=== PATIENT | female | born 1985 | race Caucasian/White ===

== ENCOUNTER → 2023-05-08 | Outpatient (CLI) | payer OTHER ==
[2023-05-09 07:06] LABS: Mumps IgG Antibody <9.0 AU/mL (Immune >10.9); Varicella Zoster IgG Antibody <135 index (Immune >165)
[2023-05-09 09:07] LABS: Rubeola IgG Antibody 15.9 AU/mL (Immune >16.4)
== END | disposition home or self-care (01) ==
LOC: LAB 12:50
PROVIDERS: ATTEND Nurse Practitioner
DX: Z01.84 Encounter for antibody response examination (principal)
CPT/HCPCS: 36415; 86706; 86735; 86762; 86765; 86787

== ENCOUNTER 2023-09-26 22:10 | Inpatient (IN) | payer MEDICAID, OTHER ==
[~2023-09-26] VITALS: Ht 157.5 cm; Wt 182.0 kg
[2023-09-26 22:56] LABS: Basophils # (auto) 0 10 ^3/uL (0-0.2); Basophils % (auto) 0.5 % (0.0-2.0); Eosinophils # (auto) 0.3 10 ^3/uL (0-0.8); Eosinophils % (auto) 2.4 % (0.0-7.0); Hematocrit 41.5 % (36.0-46.0); Lymphocytes # (auto) 3.9 10 ^3/uL (0.4-5.4); Lymphocytes % (auto) 36.2 % (10.0-50.0); Mean Corpuscular Hemoglobin 29.5 pg (28.0-32.0); Mean Corpuscular Hgb Conc. 33.8 g/dL (32.0-36.0); Mean Corpuscular Volume 87.1 fL (80.0-100.0); Monocytes # (auto) 0.7 10 ^3/uL (0-1.3); Monocytes % (auto) 6.7 % (0.0-12.0); Neutrophils # (auto) 5.9 10 ^3/uL (1.6-8.6); Neutrophils % (auto) 54.2 % (37.0-80.0); Red Blood Cells 4.76 10^6/uL (4.0-5.20); Red Cell Distribution Width 13.7 % (11.8-14.3); White Blood Cell 10.8 10^3/uL (4.4-10.8)
[2023-09-26 23:05] LABS: Alanine Aminotransferase 45 U/L (7-40); Albumin 3.9 g/dL (3.2-4.8); Alkaline Phosphatase 73 U/L (46-116); Anion Gap 7 (5-15); Aspartate Aminotransferase 26 U/L (13-40); BUN/Creatinine Ratio 16.9 (10.0-20.0); Bilirubin, Total 0.4 mg/dL (0.2-1.0); Blood Urea Nitrogen 12 mg/dL (9-23); Calcium 9.4 mg/dL (8.7-10.4); Carbon Dioxide 24 mmol/L (20-30); Chloride 105 mmol/L (98-107); Glucose 218 mg/dL (74-106); Magnesium 1.5 mg/dL (1.6-2.6); Partial Thromboplastin Time 26.8 SEC (24.5-34.5); Prothrombin Time 10.6 sec (9.3-11.8); Sodium 136 mmol/L (136-145); Total Protein 7.2 g/dL (5.7-8.2)
[2023-09-27] MEDS ORDERED: DOCUSATE SOD 100 MG CAP PO PRN (01:00)
[2023-09-27] MEDS ORDERED: HYDROcodone-ACET 5/325MG TAB PO PRN (01:00)
[2023-09-27] MEDS ORDERED: DEXTROSE (50%) 50ML SYRG IV PRN (01:00)
[2023-09-27] MEDS ORDERED: ONDANSETRON HCL 4 MG/2 ML VIAL IV PRN (01:00)
[2023-09-27] MEDS: ASPirin 325 MG TAB PO ONE (01:14)
[2023-09-27] MEDS: NITROGLYCERIN 2% OINT 1GM PKG TD ONE (01:14)
[2023-09-27] MEDS ORDERED: MORPHINE SULFATE INJ 2 MG/ml SYRG IV PRN (01:45)
[2023-09-27] MEDS ORDERED: NITROGLYCERIN 0.4 MG SL TAB SL PRN (01:45)
[2023-09-27] MEDS: SODIUM CHLORIDE 0.9% 1,000 ML IV SCH (03:39)
[2023-09-27] MEDS: MAGNESIUM SULFATE 1GM/100ML 100 ML IV ONE (03:57)
[2023-09-27 04:00] VITALS: PULSE 70; RESP 22; O2SAT 95
[2023-09-27 06:02] LABS: Basophils # (auto) 0 10 ^3/uL (0-0.2); Basophils % (auto) 0.4 % (0.0-2.0); Eosinophils # (auto) 0.3 10 ^3/uL (0-0.8); Eosinophils % (auto) 2.8 % (0.0-7.0); Hematocrit 39.5 % (36.0-46.0); Hemoglobin 13.3 g/dL (12.2-16.2); Lymphocytes # (auto) 2.6 10 ^3/uL (0.4-5.4); Mean Corpuscular Hemoglobin 29.3 pg (28.0-32.0); Mean Corpuscular Hgb Conc. 33.5 g/dL (32.0-36.0); Mean Corpuscular Volume 87.4 fL (80.0-100.0); Monocytes # (auto) 0.6 10 ^3/uL (0-1.3); Monocytes % (auto) 6.6 % (0.0-12.0); Neutrophils # (auto) 5.5 10 ^3/uL (1.6-8.6); Neutrophils % (auto) 61.2 % (37.0-80.0); Red Blood Cells 4.53 10^6/uL (4.0-5.20); Red Cell Distribution Width 13.5 % (11.8-14.3); White Blood Cell 9.1 10^3/uL (4.4-10.8)
[2023-09-27 06:27] LABS: Alanine Aminotransferase 44 U/L (7-40); Albumin 3.9 g/dL (3.2-4.8); Alkaline Phosphatase 70 U/L (46-116); Anion Gap 3 (5-15); Aspartate Aminotransferase 24 U/L (13-40); Bilirubin, Total 0.4 mg/dL (0.2-1.0); Blood Urea Nitrogen 18 mg/dL (9-23); Calcium 9.2 mg/dL (8.5-10.1); Carbon Dioxide 29 mmol/L (20-30); Chloride 105 mmol/L (98-107); Glucose 216 mg/dL (74-106); Potassium 3.8 mmol/L (3.5-5.1); Sodium 137 mmol/L (136-145); Total Protein 6.8 g/dL (5.7-8.2)
[2023-09-27] MEDS: ACCU-CHEK COMFORT CURVE STRIP VI SCH (07:01)
[2023-09-27] MEDS: InsuLIN REG 1unit/0.01ml Soln (100units/ml) SC SCH (07:02)
[2023-09-27] MEDS: ACETAMINOPHEN 325 MG TAB PO PRN (07:06)
[2023-09-27 07:30] VITALS: PULSE 73; RESP 22; O2SAT 93
[2023-09-27 09:59] LABS: Urine Bacteria None Seen /hpf (None Seen)
[2023-09-27] MEDS: ASPirin 81 mg TAB PO SCH (10:14)
[2023-09-27] MEDS: IBUPROFEN 600 MG TAB PO PRN (10:14)
[2023-09-27 10:22] LABS: Urine Blood 3+ /uL (Negative); Urine Clarity Clear (Clear); Urine Color Yellow (Yellow); Urine Mucus FEW (None Seen); Urine Protein, UAD TRACE (Negative); Urine Specific Gravity 1.035 (1.001-1.035); Urine Urobilinogen Normal (Negative); Urine WBC 6 /hpf (0 - 5); Urine pH 5.5 (5.0-9.0)
[2023-09-27 17:28] VITALS: PULSE 77; RESP 18; O2SAT 97
[2023-09-27] MEDS: traMADol HCL 50 MG TAB PO PRN (17:43)
[2023-09-27 23:01] VITALS: BP 124/72; PULSE 76; RESP 18; TEMP 97.9; O2SAT 96
[2023-09-27 23:42] VITALS: PULSE 81; PULSE 82
[2023-09-28] VITALS (8 sets, daily range): BP systolic 85–156; BP diastolic 53–81; PULSE 76–83; RESP 17–20; TEMP 97.3–98.3; O2SAT 95–98
[2023-09-28 06:36] LABS: Basophils # (auto) 0 10 ^3/uL (0-0.2); Basophils % (auto) 0.3 % (0.0-2.0); Eosinophils # (auto) 0.3 10 ^3/uL (0-0.8); Eosinophils % (auto) 2.9 % (0.0-7.0); Hematocrit 40.8 % (36.0-46.0); Hemoglobin 13.7 g/dL (12.2-16.2); Lymphocytes # (auto) 2.1 10 ^3/uL (0.4-5.4); Lymphocytes % (auto) 23.2 % (10.0-50.0); Mean Corpuscular Hemoglobin 29.7 pg (28.0-32.0); Mean Corpuscular Hgb Conc. 33.6 g/dL (32.0-36.0); Mean Corpuscular Volume 88.3 fL (80.0-100.0); Monocytes # (auto) 0.6 10 ^3/uL (0-1.3); Neutrophils # (auto) 5.9 10 ^3/uL (1.6-8.6); Neutrophils % (auto) 66.6 % (37.0-80.0); Red Blood Cells 4.62 10^6/uL (4.0-5.20); Red Cell Distribution Width 13.5 % (11.8-14.3); White Blood Cell 8.9 10^3/uL (4.4-10.8)
[2023-09-28 06:50] LABS: Alanine Aminotransferase 47 U/L (7-40); Alkaline Phosphatase 69 U/L (46-116); Anion Gap 6 (5-15); BUN/Creatinine Ratio 15.9 (10.0-20.0); Bilirubin, Total 0.6 mg/dL (0.2-1.0); Blood Urea Nitrogen 10 mg/dL (9-23); Calcium 9.2 mg/dL (8.5-10.1); Carbon Dioxide 28 mmol/L (20-30); Chloride 104 mmol/L (98-107); Glucose 161 mg/dL (74-106); Potassium 3.8 mmol/L (3.5-5.1); Sodium 138 mmol/L (136-145)
[2023-09-28 07:38] LABS: Aspartate Aminotransferase 25 U/L (13-40)
[2023-09-29 01:00] VITALS: BP 151/88; PULSE 66; RESP 20; TEMP 96.7; O2SAT 98
[2023-09-29 05:00] VITALS: BP_SYST 137; BP_SYST 84; BP_DIAS 51; BP_DIAS 74; PULSE 66; PULSE 77; RESP 20; TEMP 96.9; TEMP 98.1; O2SAT 100; O2SAT 97
[2023-09-29] MEDS ORDERED: METF-490 PO (07:52)
[2023-09-29] MEDS ORDERED: AML5T PO (07:52)
[2023-09-29 08:00] VITALS: PULSE 91; O2SAT 97
[2023-09-29 08:26] LABS: Basophils # (auto) 0 10 ^3/uL (0-0.2); Basophils % (auto) 0.3 % (0.0-2.0); Eosinophils # (auto) 0.3 10 ^3/uL (0-0.8); Hematocrit 43.3 % (36.0-46.0); Hemoglobin 14.6 g/dL (12.2-16.2); Lymphocytes # (auto) 1.9 10 ^3/uL (0.4-5.4); Lymphocytes % (auto) 18.6 % (10.0-50.0); Mean Corpuscular Hemoglobin 29.5 pg (28.0-32.0); Mean Corpuscular Hgb Conc. 33.6 g/dL (32.0-36.0); Mean Corpuscular Volume 87.7 fL (80.0-100.0); Monocytes # (auto) 0.6 10 ^3/uL (0-1.3); Monocytes % (auto) 5.8 % (0.0-12.0); Neutrophils # (auto) 7.3 10 ^3/uL (1.6-8.6); Neutrophils % (auto) 72.3 % (37.0-80.0); Nucleated Red Blood Cells % 0.1 %; Red Blood Cells 4.94 10^6/uL (4.0-5.20); Red Cell Distribution Width 13.7 % (11.8-14.3)
[2023-09-29 08:36] LABS: Chloride 107 mmol/L (98-107); Sodium 137 mmol/L (136-145)
[2023-09-29 08:37] LABS: Anion Gap 6 (5-15); Calcium 9.6 mg/dL (8.5-10.1); Carbon Dioxide 24 mmol/L (20-30)
[2023-09-29 08:42] LABS: Blood Urea Nitrogen 9 mg/dL (9-23); Glucose 174 mg/dL (74-106); Triglycerides 89 mg/dL (< 150)
[2023-09-29 08:43] LABS: LDL Cholesterol 135 mg/dL (< 100); Magnesium 1.6 mg/dL (1.6-2.6)
[2023-09-29 08:44] LABS: Cholesterol 186 mg/dL (< 200); HDL Cholesterol 42 mg/dL (40-59)
[2023-09-29 09:13] VITALS: BP 170/99; PULSE 77; RESP 19; TEMP 98.3; O2SAT 97
[2023-09-29] MEDS ORDERED: amLODIPine BESYLATE 5 MG TAB PO SCH (10:00)
[2023-09-29 13:20] VITALS: BP 134/80; PULSE 74; RESP 18; TEMP 98; O2SAT 94
== END 2023-09-29 14:30 | disposition left against medical advice (07) | DRG 199 ==
LOC: ER 22:10 → TELE 09-27 01:36 → TELE-EAST 09-27 17:13
PROVIDERS: ADMIT Nurse Practitioner Family; ATTEND Internal Medicine
DX: I16.0 Hypertensive urgency (principal); Z68.45 Body mass index [BMI] 70 or greater, adult; E11.9 Type 2 diabetes mellitus without complications; E83.42 Hypomagnesemia; E78.5 Hyperlipidemia, unspecified; E66.01 Morbid (severe) obesity due to excess calories; Z53.29 Procedure and treatment not carried out because of patient's decision for other reasons; F12.90 Cannabis use, unspecified, uncomplicated; R51.9 Headache, unspecified; F41.9 Anxiety disorder, unspecified; Z88.6 Allergy status to analgesic agent; Z82.49 Family history of ischemic heart disease and other diseases of the circulatory system; Z80.1 Family history of malignant neoplasm of trachea, bronchus and lung; Z83.3 Family history of diabetes mellitus; Z80.0 Family history of malignant neoplasm of digestive organs; Z82.0 Family history of epilepsy and other diseases of the nervous system
CPT/HCPCS: 36415; 70450; 71046; 80048; 80053; 80061; 81001; 82962; 83036; 83735; 83880; 84443; 84484; 85025; 85379; 85610; 85730; 93005; 93306; 96365; G0378; J1815